=== PATIENT | female | born 1995 | race Two or more races ===

== ENCOUNTER 2024-07-12 20:20 | Emergency (ER) | payer MEDICAID, SELFPAY ==
[2024-07-12 20:51] VITALS: BP 130/86; PULSE 71; RESP 18; TEMP 36.9; O2SAT 99
[2024-07-12 21:44] VITALS: BMI 27.0
[2024-07-12] MEDS: NAPROXEN 250 MG TABLET 500 MG PO (22:00)
[2024-07-12] MEDS: CYCLObenzaPRINE 5 MG TABLET PO (22:01)
--- NOTE | 2024-07-13 02:32 | PD.EDCHEST ---
ED Chest Pain RME/HPI General Chief Complaint: General Adult/Misc Complain Stated Complaint: RIB PAIN Time Seen by Provider: 07/12/24 21:54 Arrival date/time: 07/12/24 20:20 28F with no significant PMH presents to ED with several days of R rib/side pain w/o fall/trauma. Patient denies URI symptoms, SOB, hematuria/dysuria, and sudden onset. Patient works in the pool. Pain is worse with ROM. Limitations: no limitations Related Data Allergies Allergy/AdvReac Type Severity Reaction Status Date / Time No Known Allergies Allergy Verified 07/12/24 20:25 Review of Systems Review of Systems Systems Reviewed: All systems reviewed, normal except as documented Constitutional Constitutional: Reports system reviewed and no additional complaints, except as documented, Denies fever(s) and Denies headache(s) ENT Ears, Nose, Mouth, and Throat: Denies disequilibrium and Denies headache(s) Cardiovascular Cardiovascular: Reports system reviewed and no additional complaints, except as documented, Reports as per HPI, Reports chest pain (R rib) and Denies dyspnea Respiratory Respiratory: Reports system reviewed and no additional complaints, except as documented, Denies cough and Denies dyspnea Gastrointestinal Gastrointestinal: Reports system reviewed and no additional complaints, except as documented, Denies abdominal pain, Denies nausea and Denies vomiting Neurologic Neurologic: Reports system reviewed and no additional complaints, except as documented, Denies confusion, Denies disequilibrium and Denies headache(s) Psychiatric Psychiatric: Denies confusion Past Medical History Social History SMOKING STATUS: Never smoker ED Exam General Limitations: Present no limitations General appearance: Present alert and in no apparent distress Head Head exam: Present atraumatic Eye Eye exam: Present normal appearance, PERRL and EOMI ENT ENT exam: Present normal exam, normal oropharynx and mucous membranes moist Neck Neck exam: Present normal inspection, full ROM and trachea midline Chest Chest inspection: Present symmetric chest wall rise and tenderness (R rib/side) Respiratory Respiratory exam: Present normal lung sounds bilaterally Cardiovascular Cardiovascular exam: Present regular rate, normal rhythm and normal heart sounds Abdominal Exam Abdominal exam: Present soft and normal bowel sounds Extremities Exam Extremities exam: Present normal inspection and full ROM Back Exam Back exam: Present normal inspection and full ROM Neurological Exam Neurological exam: Present alert, oriented X3 and CN II-XII intact Psychiatric Psychiatric exam: Present normal affect and normal mood Skin Skin exam: Present warm, dry, intact and normal color Course Quality Measures none Orders Category Date Time Status CYCLObenzaPRINE [Flexeril] Med 07/12/24 21:54 Discontinued 5 mg PO X1 ONE Naproxen [Naprosyn] Med 07/12/24 21:54 Discontinued 500 mg PO X1 ONE Vital Signs Vital signs: Vital Signs Temperature 98.5 F 07/12/24 20:51 Pulse Rate 71 07/12/24 20:51 Respiratory Rate 18 07/12/24 20:51 Blood Pressure 130/86 H 07/12/24 20:51 Pulse Oximetry (%) 99 07/12/24 20:51 Oxygen Delivery Method Room Air 07/12/24 20:51 O2 at 99% on RA and WNLs Chest Pain MDM Narrative MDM Narrative:: 28F with no significant PMH presents to ED with several days of R rib/side pain w/o fall/trauma. Patient denies URI symptoms, SOB, hematuria/dysuria, and sudden onset. Patient works in the pool. Pain is worse with ROM. Physical exam reveals R anterior/side rib tenderness. ROM intact, though painful. Clear ENT and lungs. RRR. Patient is afebrile, calm, and alert. Likely MSK-in nature. Meds and student support counselor given. Patient data External records reviewed:: [facility] previous records Clinical information provided by:: patient Social determinants that could affect healthcare access:: none Patient has the following chronic illnesses:: none How is presenting disease/condition affected by chronic disease/condition?: no chronic disease Evaluation data The following diagnostics were reviewed and interpreted by me:: other (specify) (none) Lab and/or radiology exams considered but not ordered:: not ordered Interpretation Summary: n/a Medications / Prescriptions Medications or Prescriptions considered but not ordered:: ordered Medication administrations:: Medication Administration History Discontinued Medications Cyclobenzaprine HCl (Cyclobenzaprine 5 Mg Tablet) 5 mg PO X1 ONE Stop: 07/12/24 21:55 Last Admin: 07/12/24 22:01 Dose: 5 mg Documented By: Naproxen (Naproxen 250 Mg Tablet) 500 mg PO X1 ONE Stop: 07/12/24 21:55 Last Admin: 07/12/24 22:00 Dose: 500 mg Documented By: above Consultations Consultation(s) initiated? (list below): No Diagnosis Chest Pain Differential Diagnosis: fracture of rib, pneumothorax, stable angina, unstable angina pectoris, atypical chest pain, st elevation myocardial infarction, costochondritis, chest pain, biliary colic and other (rib pain on R side) Most likely diagnosis given after review of the tests above:: rib pain on R side Admission Indicated Admission indicated?: not indicated Admission Request Was there a request for admission?: No Disposition Plan Disposition Plan: Discharge Discharge Attestation Discharge Attestation: The patient and all family members were given an opportunity to ask questions and understood the discharge instructions. Discharge instructions specifically effects, indications for sooner follow up or return to the emergency department, and the expected course of current diagnosis. Patient condition: Stable Discharge Plan Plan Patient Disposition: HOME (Self Care) Disposition Comment: Stable Problem List Clinical Impression: Rib pain on right side Patient/Caregiver Discharge Instructions Additional Instructions: Please follow-up with PCP within 24-48 hours and return immediately if symptoms worsen. If problem persists, recommend outpatient PT and/or MRI follow-up. In the meantime, rest, use ice/heat, and/or compression. Ibuprofen/Tylenol can be used simultaneously for greater fever/pain control. Print Language: Nepali Stand Alone Forms: Patient Portal Info Letter ALEAH/MIRTA Supervising Physician ALEAH/MIRTA Supervising Physician: Dr. Wang
== END 2024-07-12 22:50 | disposition home or self-care (01) ==
LOC: SERX 22:17
PROVIDERS: Emergency Provider Emergency Medicine
DX: R07.81 Pleurodynia (principal)
CPT/HCPCS: 99282; A9270